=== PATIENT | male | born 1985 | race Caucasian/White ===

== ENCOUNTER 2017-06-18 14:09 | Emergency (ER) | payer OTHER ==
[2017-06-18 14:14] VITALS: RESP 16
--- NOTE | 2017-06-18 14:23 | CPEKG ---
Heart Rate: 78 RR Interval: 769 P-R Interval: 172 QRSD Interval: 108 QT Interval: 396 QTC Interval: 452 P Gall[place]: 51 QRS [place]up: -9 T Wave [place]: 43 EKG Severity - ABNORMAL ECG - EKG Impression: SINUS RHYTHM EKG Impression: PROBABLE LEFT ATRIAL ABNORMALITY EKG Impression: INCOMPLETE RIGHT BUNDLE BRANCH BLOCK Electronically Signed By: Ricardo Hernandez 18-Jun-2017 14:56:02
--- NOTE | 2017-06-18 14:39 | EDPHY ---
H & P Stated Complaint: Intermittent chest pain for 2 weeks, tightness and stabbing. Time Seen by Provider: 06/18/17 14:38 HPI/ROS: CHIEF COMPLAINT: Chest pain HISTORY OF PRESENT ILLNESS: The patient presents to the ED with intermittent history of chest pain for the past 3 weeks. The patient reports 3-4 episodes lasting approximately 30 minutes of time. The patient reports it is nonexertional. It typically occurs at rest. Patient does live weights and has no chest pain or shortness of breath with weight lifting. The patient does have a history of hyperlipidemia which is not treated with medications. There is no family medical history of coronary artery disease. The patient denies any asymmetric calf pain or swelling. The patient denies fever cough or congestion. The patient currently complains of some mild left anterior chest pain which is sharp, retrosternal and mildly pleuritic. REVIEW OF SYSTEMS: A comprehensive 10 point review of systems is otherwise negative aside from elements mentioned in the history of present illness. Source: Patient Exam Limitations: No limitations - Personal History Current Tetanus Diphtheria and Acellular Pertussis (TDAP): Unsure - Medical/Surgical History Hx Asthma: No Hx Chronic Respiratory Disease: No Hx Diabetes: No Hx Cardiac Disease: No Hx Renal Disease: No Hx Cirrhosis: No Hx Alcoholism: No Hx HIV/AIDS: No Hx Splenectomy or Spleen Trauma: No Other PMH: Denies - Social History Smoking Status: Never smoked - Physical Exam Exam: General Appearance: Alert, no distress Eyes: Pupils equal and round no pallor or injection ENT, Mouth: Mucous membranes moist Respiratory: There are no retractions, lungs are clear to auscultation Cardiovascular: Regular rate and rhythm Gastrointestinal: Abdomen is soft and nontender, no masses, bowel sounds normal Neurological: A&O, normal motor function, normal sensory exam, normal cranial nerves Skin: Warm and dry, no rashes Musculoskeletal: Neck is supple nontender Extremities: symmetrical, full range of motion Constitutional: Initial Vital Signs Temperature (C) 36.5 C 06/18/17 14:10 Heart Rate 63 06/18/17 14:10 Respiratory Rate 16 06/18/17 14:10 Blood Pressure 133/73 H 06/18/17 14:10 O2 Sat (%) 96 06/18/17 14:10 O2 Delivery Mode Room Air Allergies/Adverse Reactions: No Known Allergies Allergy (Unverified 06/18/17 14:14) Home Medications: Medication Instructions Recorded NK [No Known Home Meds] 06/18/17 Medical Decision Making - Diagnostics EKG Interpretation: EKG: Complete interpretation has been separately recorded in the [employer] archive. Summary impression: Sinus rhythm, incomplete right bundle branch block Imaging Results: Imaging Impressions Chest X-Ray 06/18/17 14:45 Impression: Clear lungs. No acute process. ED Course/Re-evaluation: The patient presents the ED with a 2 week history of atypical chest pain. The patient has no risk factors for coronary artery disease. Patient had nonexertional chest pain. Patient has a unremarkable EKG without evidence of ischemia. The patient's troponin is normal. The patient had a chest x-ray which demonstrates no evidence of a pneumothorax. His D-dimer is negative which I feel adequately excludes pulmonary embolism. Patient does endorse some symptoms of increasing stress secondary to a pending home purchase. At this point time I do feel it is reasonable to have the patient follow-up with Cardiology for consideration of a treadmill stress test. The patient has been advised to return to the ED for markedly worsening pain, difficulty breathing or other concerns. Differential Diagnosis: Differential diagnosis considered includes esophageal spasm, acute coronary syndrome, pericarditis, pneumothorax, pleurisy, costochondritis - Data Points Laboratory Results: Laboratory Results 06/18/17 14:15 06/18/17 14:15 06/18/17 06/18/17 06/18/17 14:15 14:15 14:15 WBC 5.83 10^3/uL 10^3/uL (3.80-9.50) RBC 5.16 10^6/uL 10^6/uL (4.40-6.38) Hgb 16.1 g/dL g/dL (13.7-17.5) Hct 46.2 % % (40.0-51.0) MCV 89.5 fL fL (81.5-99.8) MCH 31.2 pg pg (27.9-34.1) MCHC 34.8 g/dL g/dL (32.4-36.7) RDW 11.9 % % (11.5-15.2) Plt Count 200 10^3/uL 10^3/uL (150-400) MPV 8.9 fL fL (8.7-11.7) Neut % (Auto) 45.6 % % (39.3-74.2) Lymph % (Auto) 41.9 % % (15.0-45.0) Bremer % (Auto) 8.6 % % (4.5-13.0) Eos % (Auto) 2.4 % % (0.6-7.6) Baso % (Auto) 1.2 % % (0.3-1.7) Nucleat RBC Rel Count 0.0 % % (0.0-0.2) Absolute Neuts (auto) 2.66 10^3/uL 10^3/uL (1.70-6.50) Absolute Lymphs (auto) 2.44 10^3/uL 10^3/uL (1.00-3.00) Absolute Monos (auto) 0.50 10^3/uL 10^3/uL (0.30-0.80) Absolute Eos (auto) 0.14 10^3/uL 10^3/uL (0.03-0.40) Absolute Basos (auto) 0.07 10^3/uL 10^3/uL (0.02-0.10) Absolute Nucleated RBC 0.00 10^3/uL 10^3/uL (0-0.01) Immature Gran % 0.3 % % (0.0-1.1) Immature Gran # 0.02 10^3/uL 10^3/uL (0.00-0.10) D-Dimer < 0.27 ug/mLFEU ug/mLFEU (0.00-0.50) Sodium 142 mEq/L mEq/L (134-144) Potassium 4.0 mEq/L mEq/L (3.5-5.2) Chloride 103 mEq/L mEq/L (97-110) Carbon Dioxide 28 mEq/l mEq/l (22-31) Anion Gap 11 mEq/L mEq/L (8-16) BUN 12 mg/dL mg/dL (7-23) Creatinine 1.1 mg/dL mg/dL (0.7-1.3) Estimated GFR > 60 Glucose 96 mg/dL mg/dL (70-100) Calcium 9.4 mg/dL mg/dL (8.5-10.4) Troponin I < 0.012 ng/mL ng/mL (0.000-0.034) Departure - Departure Disposition: Home, Routine, Self-Care Clinical Impression: Chest wall pain Condition: Good Instructions: Chest Wall Pain (ED) Additional Instructions: 1. Based upon the testing done in the Emergency Department today we see no evidence of a heart attack. 2. We are unable to fully exclude coronary artery disease based upon the testing available in the Emergency Department. 3. For this reason, we would like you to be seen by cardiology for consideration of additional testing within the next 3 days. 4. Please contact the glass frame fitter you have been referred to schedule this appointment as soon as possible. Their offices are typically open from 8:30am- 5pm M-F. 5. Please return to the Emergency Department immediately for any recurrent chest pain, difficulty breathing or other concerns. 6. Take Ibuprofen or Motrin 600 mg by mouth three times a day. Referrals: [facility] [Other] - As per Instructions Jonathon Pedraza MD [Medical Doctor] - As per Instructions
[2017-06-18 14:55] LABS: % IMMATURE GRANULYOCYTES 0.3 % (0.0-1.1); ABSOLUTE IMMATURE GRANULOCYTES 0.02 10^3/uL (0.00-0.10); ADD DIFF? NO; ADD MORPH? NO; ADD SCAN? NO; ATYPICAL LYMPHOCYTE FLAG 10 (0-99); FRAGMENT RBC FLAG 0 (0-99); HEMATOCRIT 46.2 % (40.0-51.0); HEMOGLOBIN 16.1 g/dL (13.7-17.5); LEFT SHIFT FLG 0 (0-99); LIPEMIA HEMOLYSIS FLAG 90 (0-99); MEAN CELL HEMOGLOBIN 31.2 pg (27.9-34.1); MEAN CELL HEMOGLOBIN CONCENTR. 34.8 g/dL (32.4-36.7); MEAN CELL VOLUME 89.5 fL (81.5-99.8); MEAN PLATELET VOLUME 8.9 fL (8.7-11.7); PLATELET CLUMPS FLAG 0 (0-99); PLATELET COUNT 200 10^3/uL (150-400); RED BLOOD CELL COUNT 5.16 10^6/uL (4.40-6.38); RED CELL DISTRIBUTION WIDTH 11.9 % (11.5-15.2)
[2017-06-18 14:59] LABS: ANION GAP 11 mEq/L (8-16); CALCIUM 9.4 mg/dL (8.5-10.4); CARBON DIOXIDE 28 mEq/l (22-31); CHLORIDE 103 mEq/L (97-110); CREATININE 1.1 mg/dL (0.7-1.3); GLOMERULAR FILTRATION RATE > 60; GLUCOSE 96 mg/dL (70-100); SODIUM 142 mEq/L (134-144)
[2017-06-18 15:10] LABS: TROPONIN I < 0.012 ng/mL (0.000-0.034)
[2017-06-18 15:36] VITALS: BP 100/61; PULSE 67; TEMP 98.1; O2SAT 92
== END 2017-06-18 15:35 | disposition home or self-care (01) ==
DX: R07.89 Other chest pain (principal)